=== PATIENT | female | born 1965 | race African-American/Black ===

== ENCOUNTER 2018-12-29 13:31 | Emergency (ER) | payer MEDICAID ==
[~2018-12-29] VITALS: Ht 152.4 cm; Wt 68.5 kg
[2018-12-29] MEDS ORDERED: LORAZEPAM 2 MG/1 ML VIAL ONE (13:49)
--- NOTE | 2018-12-29 15:31 | NUR ---
PT ELOPED WITHOUT BEEN SEEN BY ER .
== END 2018-12-29 15:33 | disposition left against medical advice (07) ==
LOC: ER 13:31
DX: Z53.21 Procedure and treatment not carried out due to patient leaving prior to being seen by health care provider (principal)
CPT/HCPCS: A4663; J2060

== ENCOUNTER 2018-12-31 19:09 | Emergency (ER) | payer MEDICAID ==
[~2018-12-31] VITALS: Ht 165.1 cm; Wt 63.5 kg
--- NOTE | 2018-12-31 19:31 | NUR ---
Patient discharged to home in stable conditon. Written and verbal after care instructions given. Patient verbalizes understanding of instructions. Patient ambulated with stable gait.
[2018-12-31 19:32] VITALS: BP 128/74
== END 2018-12-31 19:33 | disposition home or self-care (01) ==
LOC: ER 19:09
DX: I10 Essential (primary) hypertension (principal); F41.9 Anxiety disorder, unspecified; F32.9 Major depressive disorder, single episode, unspecified; Z76.0 Encounter for issue of repeat prescription
CPT/HCPCS: A4663

== ENCOUNTER 2025-02-05 23:04 | Emergency (ER) | payer OTHER ==
[~2025-02-05] VITALS: Ht 152.4 cm; Wt 80.7 kg
[2025-02-05 23:58] LABS: PLATELET COUNT (AUTO) 247 K/uL (179-408); RED BLOOD CELL COUNT(AUTO) 3.99 MIL/uL (3.63-4.92); RED CELL DISTRIBUTION WIDTH 15.5 % (12.3-17.7); WHITE BLOOD COUNT (AUTO) 8.8 K/uL (3.8-11.8)
[2025-02-06 00:04] LABS: CREATININE 0.9 mg/dL (0.6-1.3); SODIUM SERUM 143.0 mmol/L (136-145); UREA NITROGEN, BLOOD 19.0 mg/dL (7-18)
[2025-02-06 00:10] LABS: ASPARTATE AMINOTRANSFERASE 15.0 U/L (15-37); TOTAL PROTEIN, SERUM 7.7 g/dL (6.4-8.2)
[2025-02-06] MEDS ORDERED: ONDANSETRON 4 MG/2 ML VIAL ONE (00:33)
[2025-02-06] MEDS ORDERED: HYDROMORPHONE 1 MG/1 ML DISP.SYRIN ONE (00:34)
[2025-02-06] MEDS ORDERED: LORAZEPAM 2 MG/1 ML VIAL ONE (00:35)
[2025-02-06] MEDS: ONDANSETRON 4 MG/2 ML VIAL IV ONE (00:48)
[2025-02-06] MEDS: HYDROMORPHONE 1 MG/1 ML DISP.SYRIN IV ONE (00:48)
[2025-02-06] MEDS: LORAZEPAM 2 MG/1 ML VIAL IV ONE (00:48)
[2025-02-06] MEDS ORDERED: CLINDAMYCIN 900MG/D5W 100ML IVPB **ER PYXIS ONLY IJ ONE (01:26)
[2025-02-06] MEDS: CLINDAMYCIN PHOSPHATE IV 900 MG in IV DEXTROSE 5% 100 ML IV ONE (01:29)
[2025-02-06 01:30] VITALS: BP 138/82
[2025-02-06] MEDS ORDERED: diphenhydrAMINE 50 MG/1 ML VIAL ONE (01:47)
[2025-02-06] MEDS ORDERED: diphenhydrAMINE 50 MG/1 ML VIAL IV ONE (02:00)
[2025-02-06] MEDS ORDERED: LORA-258 PO (02:57)
[2025-02-06] MEDS ORDERED: HYDR-3980 PO (02:57)
[2025-02-06] MEDS ORDERED: CLIN300C12 PO (02:57)
[2025-02-06 03:08] VITALS: BP 133/79; O2SAT 99
== END 2025-02-06 03:00 | disposition home or self-care (01) ==
LOC: ER 23:40
DX: L03.115 Cellulitis of right lower limb (principal); D64.9 Anemia, unspecified; F41.9 Anxiety disorder, unspecified; I11.9 Hypertensive heart disease without heart failure; R06.02 Shortness of breath
CPT/HCPCS: 99285; 80053; 83880; 85025; 36415; 96365; 96375; 93971; Q0163; J3490 ×2; J1200; J2060; J2405; J1171; A4606; A4663

== ENCOUNTER 2025-03-14 14:01 | Emergency (ER) | payer OTHER ==
[~2025-03-14] VITALS: Ht 152.4 cm; Wt 78.9 kg
[~2025-03-14 14:01] MED LIST: CLIN-188 PO; HYDR-3980 PO; LORA-258 PO
[2025-03-14 15:29] LABS: PLATELET COUNT (AUTO) 275 K/uL (179-408); RED BLOOD CELL COUNT(AUTO) 4.24 MIL/uL (3.63-4.92); RED CELL DISTRIBUTION WIDTH 15.8 % (12.3-17.7); WHITE BLOOD COUNT (AUTO) 6.3 K/uL (3.8-11.8)
[2025-03-14 15:37] LABS: CREATININE 0.8 mg/dL (0.6-1.3); SODIUM SERUM 141 mmol/L (136-145); UREA NITROGEN, BLOOD 22 mg/dL (7-18)
[2025-03-14 15:43] LABS: ASPARTATE AMINOTRANSFERASE 18 U/L (15-37); TOTAL PROTEIN, SERUM 7.6 g/dL (6.4-8.2)
[2025-03-14] MEDS ORDERED: IOHEXOL 350 100 ML INFUS..BTL ONE (18:14)
[2025-03-14 18:47] VITALS: BP 140/87
[2025-03-14] MEDS ORDERED: ASPIRIN 81 MG TAB.CHEW ONE (19:13)
[2025-03-14] MEDS: ASPIRIN 81 MG TAB.CHEW PO ONE (19:18)
[2025-03-14 19:29] VITALS: BP 135/81; O2SAT 98
== END 2025-03-14 19:30 | disposition left against medical advice (07) ==
LOC: ER 14:05
DX: I21.4 Non-ST elevation (NSTEMI) myocardial infarction (principal); R60.0 Localized edema; R79.89 Other specified abnormal findings of blood chemistry; Z79.899 Other long term (current) drug therapy; I11.9 Hypertensive heart disease without heart failure; I87.2 Venous insufficiency (chronic) (peripheral); F20.9 Schizophrenia, unspecified; L03.90 Cellulitis, unspecified; Z88.7 Allergy status to serum and vaccine
CPT/HCPCS: 99285; 93970; 71275; 71045; 80076; 80048; 83880; 85025; 85379; 85730; 84484 ×2; 36415; 93005; Q9967; A4606; A4663